=== PATIENT | female | born 1990 | race Caucasian/White ===

== ENCOUNTER 2017-03-26 04:35 | Emergency (ER) ==
[2017-03-26 04:57] VITALS: BP 122/76; TEMP 98.2; BMI 23.8
[2017-03-26] MEDS ORDERED: CLEOCIN 600 MG in SODIUM CHLORIDE 50 ML IV STA (05:21)
--- NOTE | 2017-03-26 05:30 | ED.PDOC ---
General ED Provider: Dr. SYED ALBARADO-ER Chief Complaint: Rash Stated Complaint: courtney had this for 3-4 days--it hurts Time Seen by Physician: 05:00 Mode of Arrival: Walk-In Information Source: Patient, Family Exam Limitations: No limitations Nursing and Triage Documentation Reviewed and Agree: Yes Skin Complaint Exam - Skin/Soft Tissue Complaint/Exam Onset/Duration: 4 days Symptoms Are: Still present Timing: Constant Initial Severity: Mild Current Severity: Moderate Location: left bicep mass Character: Reports: Redness, Swelling, Raised, Painful Aggravating: Reports: Touch Alleviating: Reports: None Associated Signs and Symptoms: Reports: Fever, Chills, Tenderness, Red streaks. Denies: Itching, Drainage, Bruising, Joint swelling Related History: Reports: Similar episode Related Surgical History: Reports: None Recent Exposure to Others w/Similar Symptoms: No Skin Findings: Present: Erythema, Induration, Fluctuant mass Joint Tenderness Present: No Differential Diagnoses: Abscess, Cellulitis, Infection Review of Systems - Review Of Systems Constitutional: Reports: Chills, Fever Eyes: Reports: No symptoms Ears, Nose, Mouth, Throat: Reports: No symptoms Respiratory: Reports: No symptoms Cardiac: Reports: No symptoms GI: Reports: No symptoms : Reports: No symptoms Musculoskeletal: Reports: No symptoms Skin: Reports: Lumps, Rash Neurological: Reports: No symptoms Endocrine: Reports: No symptoms Hematologic/Lymphatic: Reports: No symptoms All Other Systems: Reviewed and Negative Past Medical History - Past Medical History Previously Healthy: No Endocrine: Reports: Unknown Cardiovascular: Reports: Unknown Respiratory: Reports: Unknown Hematological: Reports: Unknown Gastrointestinal: Reports: Unknown Genitourinary: Reports: Unknown Neuro/Psych: Reports: Unknown Musculoskeletal: Reports: Unknown Cancer: Reports: Unknown Last Menstrual Period: 2-3 months ago - irregular - had tubal - Surgical History General Surgical History: Reports: Unknown - Family History Family History: Reports: Unknown - Social History Smoking Status: Current every day smoker Hx Substance Use: No Alcohol Screening: None Lives: With family - Immunizations Tetanus Shot up to Date: Yes Physical Exam - Physical Exam Appearance: Well-appearing, No pain distress, Well-nourished Eyes: TITA, EOMI, Conjunctiva clear ENT: Ears normal, Nose normal, Oropharynx normal Neck: Supple Respiratory: Airway patent, Breath sounds clear, Breath sounds equal, Respirations nonlabored Cardiovascular: RRR, Pulses normal, No rub, No murmur GI/: Soft, Nontender, No masses, Bowel sounds normal, No Organomegaly Musculoskeletal: Normal strength, ROM intact, No edema, No calf tenderness Skin: Warm, Dry (exam does confirm warm fluctuant mass over left bicep with cellulitis over left arm) Neurological: Sensation intact, Motor intact, Reflexes intact, Cranial nerves intact, Alert, Oriented Psychiatric: Affect appropriate, Mood appropriate Critical Care Note - Critical Care Note Total Time (mins): 15 Course - Course Orders, Labs, Meds: Orders Category Date Time Status IV [ED IV/MEDIPORT/POWERPORT] .ONCE EMERGENCY 03/26/17 05:21 Active BLOOD CULTURE (ED ONLY) Stat LAB 03/26/17 Ordered CBC W/ AUTO DIFF Stat LAB 03/26/17 05:21 Ordered COMPREHENSIVE METABOLIC PANEL Stat LAB 03/26/17 05:21 Ordered 0.9 % Sodium Chloride [Saline Flush] MEDS 03/26/17 05:21 Ordered 1 syr IVF PRN PRN Clindamycin Phosphate Inj [Cleocin] 600 mg MEDS 03/26/17 05:21 Active 0.9 % Sodium Chloride [Sodium Chloride] 50 ml IV ONCE Medications Generic Name Dose Route Start Last Admin Trade Name Freq PRN Reason Stop Dose Admin Clindamycin Phosphate 600 mg/ 54 mls @ 50 mls/hr 03/26/17 05:21 Sodium Chloride IV 03/26/17 06:25 ONCE STA Sodium Chloride 1 syr 03/26/17 05:21 Saline Flush IVF PRN PRN To flush IV this young lady has an abscess in her left bicep with cellulitis and needs transfer to [facility] for iv antbx and surgical consult--she declines and says she wants to leave [facility]--she is aware by not treating she is at risk for further injury including but she still declines Vital Signs: Temp Pulse Resp BP Pulse Ox 03/26/17 04:45 98.2 F 95 H 20 122/76 98 Departure - Departure Time of Disposition: 05:32 Disposition: AMA Discharge Problem: Abscess of arm, left Cellulitis Qualifiers: Site of cellulitis: extremity Site of cellulitis of extremity: upper extremity Laterality: left Qualified Code(s): L03.114 - Cellulitis of left upper limb Condition: Good Pt referred to PMD for follow-up: No Additional Instructions: return prn Allergies/Adverse Reactions: Allergies No Known Allergies Allergy (Unverified 03/26/17 04:57) Home Medications: Ambulatory Orders 1 [No Reported Medications] 03/26/17 Disposition Discussed With: Patient, Family
== END 2017-03-26 05:33 | disposition left against medical advice (07) ==
LOC: ED 04:35
DX: L02.414 Cutaneous abscess of left upper limb (principal); L03.114 Cellulitis of left upper limb; F17.210 Nicotine dependence, cigarettes, uncomplicated
CPT/HCPCS: 99284